=== PATIENT | female | born 1970 | race Caucasian/White ===

== ENCOUNTER → 2017-01-13 07:24 | Outpatient (CLI) | payer BC ==
[2012-11-26 08:21] VITALS: BMI 45.9
[~2017-01-13 07:24] MED LIST: CALCI-CHEW1 TAB.CHEW PO; CALCIUM 600+D T1 TA1 PO; CHLORTHALIDONE25 MG PO; COREG12.5 MG PO; ESTRACE1 MG PO; ESTRADERM 0.00.05 MG TD; MOTRIN800 MG PO; NORCO 10/325 TA1 TA1 PO; NORVASC10 MG PO; NORVASC5 MG PO; PHENERGAN25 M1 PO; SAVELLA50 MG PO; SOMA350 MG PO; ULTRAM50 MG PO
== END | disposition home or self-care (01) ==
LOC: D.MRI 07:24
DX: M25.562 Pain in left knee (principal)

== ENCOUNTER 2017-01-16 08:22 | Day surgery (SDC) | payer BC ==
[~2017-01-16] VITALS: Ht 175.3 cm; Wt 144.2 kg
--- NOTE | ~2017-01-16 | OP ---
PATIENT NAME: REYNA DUKES MEDICAL RECORD: [id number] :68 LOCATION:[facility] AD[facility] DATE: SURGEON: VIJAY DANGELO DO DATE OF OPERATION: 01/16/2017 PROCEDURE: Left knee arthroscopy with partial lateral meniscectomy with patellar chondroplasty and removal of loose body. 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 POSTOPERATIVE DIAGNOSES: Patellar chondromalacia and a lateral meniscal tear of the left knee. INDICATIONS: Ms. Dukes is a 46-year-old female who presented to the office with excruciating left knee pain that she has had that has continually gotten worse over the past few weeks. She especially hurts when she goes up and down steps and she had to pull, she goes up and down, but with ground pulling. She is to the point where her leg is popping, catching and she is tired of dealing with the pain with any twisting injury. She has increased pain. She came to the office and an MRI was ordered and indicated that she had a lateral meniscal tear in the anterior portion of the lateral meniscus as well as a grade I chondromalacia. She was consented for a left knee arthroscopy with partial lateral meniscectomy and patellar chondroplasty and removal of loose bodies. DESCRIPTION OF PROCEDURE: Ms. Dukes was taken to the operative suite and placed in supine position, given general anesthetic and was intubated by anesthesia. She was given 2 grams of Ancef. Timeout was performed indicating the correct patient, correct surgery site and antibiotics were given, everyone in the room was in agreement. She was then prepped and draped in sterile fashion and the lateral portal was established after 4 mL of 0.5% Marcaine with epinephrine was injected into the lateral portal site and the medial portal site. A #11 blade was used to make a lateral portal. Trocar was then entered into the knee and a diagnostic arthroscopy was made. Looking into the suprapatellar pouch, it is noted that severe chondromalacia grade IV on the patella and just below it and the trochlea was seen. Then, looking in the medial or lateral gutter had what appeared to be a loose body and otherwise is normal. Medial gutter did not have any loose bodies. The knee was then flexed and the medial joint was entered into. Meniscus was probed after the medial portal was established using 11 blade knife and seen to be stable. No tears were noted. ACL was then probed and seen to be stable as well. We then entered the lateral compartment of the knee, figure-four in the leg and the anterior horn of the lateral meniscus was completely shredded. A large portion of it, like 50% of it proximally was completely obliterated and was in shreds. Shaver was then entered into the lateral compartment and the lateral meniscus had been shredded, was shaved out back to a stable part. The rest of the lateral meniscus was stable and it was curled. We then entered back into the suprapatellar pouch and a chondroplasty was performed on the patella and trochlea and then the loose body from the lateral gutter was retrieved. The scope was then withdrawn. The camera was withdrawn and the switch portals from the lateral portal to the medial portal and entered to look at the suprapatellar pouch from that vantage point and the shaver was entered in to do a more thorough chondroplasty of the patella. After that, the scope was withdrawn. The water was turned off and suction was placed and removal of the remaining fluid in the knee. Then, the trocar was removed and then the portal incisions OPERATIVE REPORT [id number] REYNA DUKES were closed with 3-0 Monocryl in an inverted interrupted fashion. Steri-Strips, Adaptic, 4 x 4's, ABD, Webril and 6-inch Kendrick wrap was then placed over the knee and a KAYLA hose was placed to the knee. She is awake and in stable condition taken to PACU. Minimal blood loss. TRANSINT:[id number] Voice Confirmation ID: [id number] DOCUMENT ID: [id number] VIJAY DANGELO DO CC: [id number] DICTATION DATE: 01/16/17 1212 [facility]: 01/16/17 1749 [facility] 01/16/17 [facility] [address] [place] [address]
[2017-01-16 09:10] VITALS: BP 173/95; Ht 175.3 cm; Wt 144.2 kg
[2017-01-16] MEDS ORDERED: METOPROLOL TAR100 M1 PO (09:18)
[2017-01-16] MEDS ORDERED: NEURONTIN 400400 MG PO (09:18)
[2017-01-16 09:47] LABS: HEMATOCRIT 40.8 % (36.0-48.0); HEMOGLOBIN 12.6 g/dL (12-16); MCH 28.4 pg (26.0-34.0); MCHC 30.9 g/dL (31.0-37.0); MCV 91.9 fL (80.0-100.0); MEAN PLATELET VOLUME 9.8 fL (7.4-10.4); RBC 4.44 10x6/uL (4.00-5.40); RDW 15.7 % (11.5-14.5); WBC 6.3 10x3/uL (4.8-10.8)
[2017-01-16] MEDS ORDERED: PERCOCET 5-3251 TAB PO (12:04)
--- NOTE | 2017-01-16 14:23 | NUR ---
1420 DISCHARGE INSTRUCTIONS COMPLETE. PRESCRIPTION FOR PERCOCET GIVEN. ESCORTED OUT BY VOLUNTEER.
== END 2017-01-16 14:20 | disposition home or self-care (01) ==
LOC: D.OPS 08:22 → D.PAN 10:45 → D.OPS 10:45
PROVIDERS: Anesthesiology
DX: S83.282A Other tear of lateral meniscus, current injury, left knee, initial encounter (principal); M22.42 Chondromalacia patellae, left knee; I10 Essential (primary) hypertension; K21.9 Gastro-esophageal reflux disease without esophagitis; E66.01 Morbid (severe) obesity due to excess calories; Z68.42 Body mass index [BMI] 45.0-49.9, adult; Z01.812 Encounter for preprocedural laboratory examination

== ENCOUNTER → 2018-03-16 18:49 | Outpatient (CLI) | payer BC ==
[2017-01-16 09:10] VITALS: BMI 47.0
[~2018-03-16 18:49] MED LIST changes: +METOPROLOL TAR100 M1 PO; +NEURONTIN 400400 MG PO; +PERCOCET 5-3251 TAB PO
== END | disposition home or self-care (01) ==
LOC: D.MAMMO 13:45
DX: Z12.31 Encounter for screening mammogram for malignant neoplasm of breast (principal)

== ENCOUNTER 2019-12-19 08:00 | Outpatient (CLI) | payer BC ==
[2017-01-16 09:10] VITALS: BMI 47.0
== END 2019-12-19 10:00 | disposition home or self-care (01) ==
LOC: D.MAMMO 08:00
PROVIDERS: ATTEND Family Medicine
DX: Z12.31 Encounter for screening mammogram for malignant neoplasm of breast (principal)

== ENCOUNTER → 2020-01-06 10:08 | Outpatient (CLI) | payer BC, OTHER ==
[2017-01-16 09:10] VITALS: BMI 47.0
== END | disposition home or self-care (01) ==
LOC: D.LAB 10:08
PROVIDERS: ATTEND Surgery
DX: Z11.59 Encounter for screening for other viral diseases (principal); E66.01 Morbid (severe) obesity due to excess calories

== ENCOUNTER 2020-04-02 19:12 | Emergency (ER) | payer BC, OTHER ==
[2020-04-02 19:20] VITALS: BP 194/88; Ht 175.3 cm
[2020-04-02] MEDS ORDERED: OXYBUTYNIN CHLOR5 MG PO (19:23)
[2020-04-02] MEDS ORDERED: PROMETRIUM100 MG PO (19:24)
[2020-04-02] MEDS ORDERED: CYMBALTA60 MG PO (19:24)
[2020-04-02] MEDS ORDERED: HYDROCODON-ACE1 EA10 PO (21:05)
== END 2020-04-02 21:30 | disposition home or self-care (01) ==
LOC: D.ER 19:12
DX: M54.12 Radiculopathy, cervical region (principal); M25.512 Pain in left shoulder; I10 Essential (primary) hypertension; G62.9 Polyneuropathy, unspecified

== ENCOUNTER → 2020-09-22 10:28 | Outpatient (CLI) | payer BC, OTHER ==
[~2020-09-22 10:28] MED LIST changes: +CYMBALTA60 MG PO; +HYDROCODON-ACE1 EA10 PO; +OXYBUTYNIN CHLOR5 MG PO; +PROMETRIUM100 MG PO
[2020-09-22 10:57] LABS: BASOPHILS 0.5 % (0-2); HEMATOCRIT 40.1 % (36.0-48.0); HEMOGLOBIN 12.4 g/dL (12-16); IMMATURE GRANULOCYTES 0.2 % (0-5); LYMPHOCYTE ABS# 2.65 10x3/uL (1.18-3.74); LYMPHOCYTES 39.8 % (15-50); MCH 28.1 pg (26.0-34.0); MCHC 30.9 g/dL (31.0-37.0); MCV 90.7 fL (80.0-100.0); MEAN PLATELET VOLUME 9.8 fL (7.4-10.4); MONOCYTES 10.1 % (2-11); NEUTROPHIL ABS# 3.09 10x3/uL (1.56-6.13); NEUTROPHILS 46.4 % (40-80); PLATELET COUNT 221 10x3/uL (130-400); RBC 4.42 10x6/uL (4.00-5.40); RDW 16.9 % (11.5-14.5); WBC 6.7 10x3/uL (4.8-10.8)
[2020-09-22 11:21] LABS: % SATURATION 11 % (15-55); IRON 43 ug/dl (35-150); TOTAL IRON BIND CAPACITY 366 ug/dl (260-445); UNSAT IRON BIND CAPACITY 323 ug/dl (150-375)
[2020-09-22 11:41] LABS: ALBUMIN 3.3 g/dL (3.4-5.0); ALKALINE PHOSPHATASE 81 U/L (30-120); ALT (SGPT) 45 U/L (10-68); BILIRUBIN - TOTAL 0.78 mg/dL (0.2-1.3); CALC OSMOLALITY 277 mosm/kg (275-300); CALCIUM 8.8 mg/dL (8.5-10.1); CARBON DIOXIDE 26.3 mmol/L (21.0-32.0); CHLORIDE - SERUM 105 mmol/L (98-107); CHOL - HDL RATIO 3.3 ratio (2.3-4.1); CHOLESTEROL, TOTAL 191 mg/dL (0-200); CREATININE - SERUM 0.7 mg/dL (0.6-1.3); GLUCOSE 95 mg/dL (74-106); HDL CHOLESTEROL 58 mg/dL (32-96); LDL CHOLESTEROL 108 mg/dL (0-100); LDL-HDL RATIO 1.9 ratio (1.5-3.5); POTASSIUM - SERUM 4.2 mmol/L (3.5-5.1); PROTEIN - SERUM 7.8 g/dL (6.4-8.2); SODIUM 139 mmol/L (136-145); T4 THYROXIN - FREE 1.02 ng/dL (0.76-1.46); T4 THYROXINE 9.1 ug/dL (4.7-13.3); THYROID STIMULATING HORMONE 1.63 uIU/mL (0.36-3.74); TRIGLYCERIDE 125 mg/dL (30-200); UREA NITROGEN 12 mg/dL (7-18); eGFR NON AFRICAN AMERICAN > 90 mL/min (90-120)
== END | disposition home or self-care (01) ==
LOC: D.LABREF 10:28
PROVIDERS: ATTEND Surgery
DX: E55.9 Vitamin D deficiency, unspecified (principal); E03.9 Hypothyroidism, unspecified; E03.4 Atrophy of thyroid (acquired); R53.83 Other fatigue; E51.9 Thiamine deficiency, unspecified; D51.9 Vitamin B12 deficiency anemia, unspecified; R68.89 Other general symptoms and signs; E87.8 Other disorders of electrolyte and fluid balance, not elsewhere classified; E78.5 Hyperlipidemia, unspecified; D64.9 Anemia, unspecified; E11.9 Type 2 diabetes mellitus without complications